=== PATIENT | female | born 1975 | race Caucasian/White ===

== ENCOUNTER → 2021-02-03 | Outpatient (CLI) | payer BC, OTHER ==
[~2021-02-03] MED LIST: IBUPROFEN800 MG PO; NORCO 5-325 TA1 EACH PO
== END ==
LOC: EROP 13:00
DX: R05 Cough (principal); Z20.822 Contact with and (suspected) exposure to COVID-19
CPT/HCPCS: U0002

== ENCOUNTER → 2021-03-22 | Outpatient (CLI) | payer BC, OTHER | LOC: MAMO 02-12 14:30 | DX: Z12.31 Encounter for screening mammogram for malignant neoplasm of breast (principal); M25.562 Pain in left knee; M25.561 Pain in right knee; D72.829 Elevated white blood cell count, unspecified; N95.1 Menopausal and female climacteric states; E55.9 Vitamin D deficiency, unspecified; D45 Polycythemia vera | CPT/HCPCS: 77063; 77067 ==

== ENCOUNTER → 2021-03-26 | Outpatient (CLI) | payer BC, OTHER ==
[2021-03-26 03:47] LABS: HEMOGLOBIN 13.2 gm/dl (12.3-15.3); RED BLOOD COUNT 4.52 M/UL (4.00-5.10); WHITE BLOOD COUNT 11.2 K/UL (4.5-11.0)
[2021-03-26 03:58] LABS: BUN/CREATININE RATIO 26 (0-10)
[2021-03-27 08:14] LABS: VITAMIN D, 25-HYDROXY 42.9 ng/mL (30.0-100.0)
== END ==
LOC: LAB 02:36
PROVIDERS: Nurse Practitioner Primary Care
DX: M25.561 Pain in right knee (principal); M25.562 Pain in left knee; N95.1 Menopausal and female climacteric states; E55.9 Vitamin D deficiency, unspecified; D72.829 Elevated white blood cell count, unspecified; D45 Polycythemia vera
CPT/HCPCS: 80053; 80061; 80307; 85025

== ENCOUNTER 2021-07-22 19:33 | Outpatient (CLI) | payer BC | END 2021-07-23 04:40 | disposition home or self-care (01) | LOC: LAB 19:33 | DX: E55.9 Vitamin D deficiency, unspecified (principal); M25.561 Pain in right knee; M25.562 Pain in left knee; N95.1 Menopausal and female climacteric states; D72.829 Elevated white blood cell count, unspecified | CPT/HCPCS: 84443 ==

== ENCOUNTER 2022-04-13 17:52 | Emergency (ER) | payer BC ==
[2022-04-13 19:11] LABS: WHITE BLOOD COUNT 9.4 K/UL (4.5-11.0)
[2022-04-13 19:24] LABS: BUN/CREATININE RATIO 12 (0-10)
[2022-04-13] MEDS ORDERED: ZOFRAN ODT 4 MG4 MG PO (19:53)
[2022-04-13] MEDS ORDERED: PROVENTIL HFA6.7 GM INH (19:53)
== END 2022-04-13 20:05 | disposition home or self-care (01) ==
LOC: ER1 17:52
PROVIDERS: Physician Assistant
DX: U07.1 COVID-19 (principal); F17.210 Nicotine dependence, cigarettes, uncomplicated
CPT/HCPCS: 0240U; 71045; 80053; 82550; 82553; 83735; 83880; 84439; 84443; 84484; 85025; 85610; 85730; 93005; 99284